=== PATIENT | female | born 1995 | race American Indian/Alaskan Native ===

== ENCOUNTER 2020-05-31 10:27 | Outpatient (CLI) | payer BC ==
--- NOTE | 2020-05-31 14:37 | Mammography Report ---
BILATERAL DIGITAL DIAGNOSTIC MAMMOGRAM WITH CAD -- 05/31/2020 BILATERAL LIMITED BREAST ULTRASOUND INDICATION: Patient presents for evaluation of an area of palpable concern in the left axilla. TECHNIQUE: Digital bilateral mammographic imaging was performed. Spot compression views were obtaine d. Limited ultrasound was performed. This examination was interpreted with the benefit of Computer- ded Detection (CAD) analysis. COMPARISON: Baseline FINDINGS: Breast Density: The breasts are extremely dense, which lowers the sensitivity of mammography. MAMMOGRAPHIC FINDINGS: There is no evidence of dominant mass, suspicious calcifications or architectu ral distortion in the right breast. Corresponding with the area of palpable concern in the left axill a, there are at least 4 asymmetric prominent left axillary lymph nodes. Targeted ultrasound performed for further evaluation. ULTRASOUND FINDINGS: Targeted ultrasound evaluation was performed of the area of interest. Targeted ultrasound of the area of palpable concern in the left axilla reveals multiple slightly prominent le ft axillary lymph nodes with mild diffuse cortical thickening, the largest measuring up to 1.8 x 0.9 cm. Targeted ultrasound was performed of the right axilla for comparison purposes and there are 2 mor phologically normal right axillary lymph nodes. The left-sided lymph nodes appear slightly more promi nent compared with the right. IMPRESSION: 1. Prominent left axillary lymph nodes account for the area of palpable concern. These are indetermin ate and may be reactive, but ultrasound-guided biopsy is recommended to confirm a benign etiology. Follow up recommendation: Biopsy BI-RADS Category 4: Suspicious for Malignancy. A "normal" or negative report should not discourage follow up or biopsy of a clinically significant f inding. A written summary of these findings will be mailed to the patient. The patient will be entered into a mammography reporting system which will generate a reminder letter for the patient's next appointmen t at the appropriate interval. According to the [employer], yearly mammograms are recommended starting at age 40 and continuing as long as a woman is in good health. Breast MRI is recommended for women with an natali roximately 20-25% or greater lifetime risk of breast cancer, including women with a strong family his tory of breast or ovarian cancer and women who have been treated for Hodgkin's disease. Signer Name: Ashanti Arias MD Signed: 05/31/2020 2:33 PM Workstation Name: [id number]
== END 2020-05-31 10:28 | disposition home or self-care (01) ==
LOC: MAMMO 10:27
PROVIDERS: ATTEND Obstetrics & Gynecology
DX: N63.20 Unspecified lump in the left breast, unspecified quadrant (principal); N64.4 Mastodynia; R59.0 Localized enlarged lymph nodes
CPT/HCPCS: 77066

== ENCOUNTER 2020-06-14 11:09 | Outpatient (CLI) | payer BC ==
--- NOTE | 2020-06-14 15:57 | Ultrasound Report ---
ULTRASOUND-GUIDED LEFT AXILLARY BIOPSY INDICATION: Left axillary ninoska prominence COMPARISON: Axillary ultrasound 05/31/2020, bilateral mammography 05/31/2020 CONSENT: Procedure was discussed at length in advance with the patient. Possible risks and benefits w ere discussed including the possibility of bleeding. Postbiopsy care was discussed. Opportunity for q uestions was provided. Patient is not on anticoagulant therapy and reports no pertinent allergies. PROCEDURE: Timeout was performed. One of the more prominent lymph nodes in the left axilla was select ed and targeted sonographically. Using aseptic technique and under local anesthesia, with real-time s onographic guidance, the area of interest was biopsied. Two core specimens were obtained with An Enpirion april 18-gauge biopsy device and sent to pathology for analysis, one in formalin and one in sterile stefanie ine. A metallic clip was placed at the end of the procedure immediately adjacent to this node. Site w as secured and the patient was sent for post biopsy mammogram. Patient tolerated the procedure well a nd left the department in good condition. IMPRESSION: Successful ultrasound-guided left axillary biopsy Signer Name: Jos Nieves MD Signed: 06/14/2020 3:53 PM Workstation Name: [id number]
== END 2020-06-14 11:10 | disposition home or self-care (01) ==
LOC: SPVWC 11:09
PROVIDERS: ATTEND Obstetrics & Gynecology
DX: R59.9 Enlarged lymph nodes, unspecified (principal)
CPT/HCPCS: 38505; 76942; 88305